=== PATIENT | male | born 1945 | race Caucasian/White ===

== ENCOUNTER 2021-01-11 18:55 | Inpatient (IN) ==
[2021-01-11] MEDS ORDERED: *HR* Etomidate 20 MG/10 ML AMPUL IVP ONE (19:08)
[2021-01-11] MEDS ORDERED: *HR* Midazolam HCl 5 MG/5 ML VIAL IVP ONE (19:08)
[2021-01-11] MEDS ORDERED: *HR* Rocuronium Bromide 50 MG/5 ML VIAL IVP ONE (19:08)
[2021-01-11] MEDS ORDERED: 0.9 % Sodium Chloride 500 ML IVC ONE (19:09)
[2021-01-11] MEDS ORDERED: 0.9 % Sodium Chloride 1,000 ML IVC STA ×2 (19:31→20:15)
[2021-01-11 19:48] LABS: Basophils % 0.1 %; Hematocrit 39.2 % (37.5-50.1); Hemoglobin 12.7 g/dL (12.9-16.9); Lymphocytes # 0.4 K/mcL (0.6-4.6); Lymphocytes % 2.5 %; Mean Corpuscular HGB Conc 32.4 g/dL (31.6-35.5); Mean Corpuscular Hemoglobin 27.9 pg (28.0-33.3); Mean Corpuscular Volume 86.2 fL (83.0-100.0); Mean Platelet Volume 10.2 fL (9.4-12.4); Monocytes # 0.5 K/mcL (0.0-1.3); Monocytes % 3.2 %; Neutrophils # 14.7 K/mcL (1.6-8.9); Nucleated Red Blood Cells 0.3 /100 WBC (0); Platelet Count 154 K/mcL (140-400); Red Blood Count 4.55 M/mcL (4.19-5.50); Red Cell Distribution Width 13.8 % (11.5-14.5); Segmented Neutrophils % 93.2 %; White Blood Count 15.8 K/mcL (4.3-11.1)
[2021-01-11 19:56] LABS: INR 1.5; Prothrombin Time 16.6 Seconds (9.4-12.1)
[2021-01-11 19:59] LABS: Activated Partial Thrombo Time 32.2 Seconds (26.0-36.0)
[2021-01-11 20:13] LABS: Alanine Aminotransferase 19 Units/L (7-52); Albumin 3.7 g/dL (3.5-5.7); Albumin/Globulin Ratio 1.2 (1.1-2.2); Alkaline Phosphatase 55 Units/L (34-104); Aspartate Amino Transferase 31 Units/L (13-39); BUN/Creatinine Ratio 21 (6-26); Bilirubin,Direct 0.3 mg/dL (0.0-0.2); Bilirubin,Total 1.3 mg/dL (0.3-1.0); Blood Urea Nitrogen 28 mg/dL (8-23); Carbon Dioxide 26 mEq/L (23-29); Chloride 97 mEq/L (98-107); Glucose 138 mg/dL (70-105); Magnesium 1.8 mg/dL (1.6-2.6); Osmolality,Calculated 284 (280-300); Potassium 3.7 mEq/L (3.5-5.1); Sodium 133 mEq/L (136-145); Total Protein 6.7 g/dL (6.4-8.9); Troponin I 0.48 ng/mL (< 0.04); eGFR For African Americans > 60 (> 60); eGFR For Non-African Americans 52 (> 60)
[2021-01-11] MEDS ORDERED: Azithromycin 500 MG in 0.9 % Sodium Chloride 250 ML IVPB ONE (20:14)
[2021-01-11] MEDS ORDERED: cefTRIAXone 1,000 MG in Water for inj. (sterile) 10 ML IVP ONE (20:14)
[2021-01-11 20:23] LABS: Thyroid Stimulating Hormone 1.046 mcIU/mL (0.340-5.600)
[2021-01-11 20:32] LABS: Bilirubin,Urine Negative (Negative); Blood,Urine Small (Negative); Clarity,Urine Clear (Clear); Color,Urine Yellow (Yellow); Glucose,Urine (UA) Normal (Normal); Ketones,Urine 20 mg/dL (Negative); Leukocyte Esterase,Urine Negative (Negative); Mucus,Urine Few per lpf (None-Few); Nitrite,Urine Negative (Negative); PH,Urine 7.5 pH Units (5.0-8.0); Protein,Urine >=300 mg/dL (Neg-Trace); Specific Gravity,Urine 1.029 (1.010-1.025); Squamous Epithelial Cell,Urine Few per hpf (None-Few); Urobilinogen,Urine Normal (Normal); WBC,Urine 0-3 per hpf (0-3)
[2021-01-11] MEDS ORDERED: *HR* Heparin 5,000 UNIT/ML VIAL IVP ONE (20:35)
[2021-01-11] MEDS ORDERED: *HR* Heparin 5,000 UNIT/ML VIAL IVP PRN (20:35)
[2021-01-11] MEDS ORDERED: methylPREDNISolone 125 MG/2 ML VIAL IVP ONE (20:38)
[2021-01-11] MEDS ORDERED: Ondansetron 4 MG/2 ML VIAL IVP ONE (20:38)
[2021-01-11] MEDS ORDERED: Isovue-370 500 ML BOTTLE IVP ONE (20:38)
[2021-01-11] MEDS ORDERED: Ipratropium/Albuterol Neb 3 ML IH ONE (20:38)
[2021-01-11] MEDS ORDERED: Famotidine 20 MG/2 ML VIAL IVP ONE (20:39)
[2021-01-11] MEDS ORDERED: DilTIAZem 50 MG/50 ML IV.SOLN IVC SCH (20:45)
[2021-01-11] MEDS ORDERED: 0.9 % Sodium Chloride 1,000 ML ONE (21:10)
[2021-01-11] MEDS ORDERED: Furosemide 80 MG in 0.9 % Sodium Chloride 50 ML IVPB ONE (21:22)
[2021-01-11 21:29] LABS: ABG Base Excess -8 mEq/L (-2 to 3); ABG HCO3 24 mEq/L (21-27); ABG Oxygen Saturation 88 % (95-98); ABG PCO2 82 mmHg (35-45); ABG PH 7.07 pH Units (7.32-7.45); ABG PO2 78 mmHg (85-104); ABG TCO2 27 mEq/L (20-26); Blood Gas Modality ASSIST CONTROL; Blood Gas VT 500 cc
[2021-01-11] MEDS ORDERED: Acetaminophen 650 MG RECTAL SUPP RC ONE (21:45)
[2021-01-11 22:44] LABS: Hematocrit 42.3 % (37.5-50.1); Hemoglobin 13.2 g/dL (12.9-16.9); Mean Corpuscular HGB Conc 31.2 g/dL (31.6-35.5); Mean Corpuscular Volume 89.6 fL (83.0-100.0); Mean Platelet Volume 10.3 fL (9.4-12.4); Platelet Count 203 K/mcL (140-400); Red Blood Count 4.72 M/mcL (4.19-5.50); Red Cell Distribution Width 14.2 % (11.5-14.5)
[2021-01-11 22:45] LABS: White Blood Count 24.3 K/mcL (4.3-11.1)
[2021-01-11 22:52] LABS: Heparin anti-factor XA UFH < 0.04 IU/mL (0.30-0.70)
[2021-01-11 22:53] LABS: INR 1.4; Prothrombin Time 15.9 Seconds (9.4-12.1)
[2021-01-11 23:11] LABS: ABG Base Excess -6 mEq/L (-2 to 3); ABG HCO3 26 mEq/L (21-27); ABG Oxygen Saturation 93 % (95-98); ABG PCO2 80 mmHg (35-45); ABG PH 7.11 pH Units (7.32-7.45); ABG PO2 92 mmHg (85-104); ABG TCO2 28 mEq/L (20-26); Blood Gas VT 500 cc
[2021-01-11] MEDS ORDERED: 0.9 % Sodium Chloride 250 ML ONE (23:16)
[2021-01-11] MEDS: Heparin 25,000UNIT/250ML 1/2NS 25,000 UNIT/250 ML IV.SOLN IVC SCH (23:28)
[2021-01-11] MEDS ORDERED: Piperacillin/Tazobactam 3.375 GM in 0.9 % Sodium Chloride Mini Bag 100 ML IVPB ONE (23:32)
[2021-01-11] MEDS ORDERED: 0.9 % Sodium Chloride 1,000 ML IVC SCH (23:45)
[2021-01-12] MEDS ORDERED: Vancomycin 1,500 MG/265 ML IV.SOLN IVPB STA
[2021-01-12] MEDS ORDERED: *HR* Heparin 5,000 UNIT/ML VIAL IVP ONE (00:16)
[2021-01-12] MEDS ORDERED: *HR* Heparin 5,000 UNIT/ML VIAL IVP PRN ×2 (00:16)
[2021-01-12] MEDS ORDERED: *HR* Etomidate 20 MG/10 ML AMPUL IVP ONE (00:22)
[2021-01-12] MEDS ORDERED: *HR* Rocuronium Bromide 50 MG/5 ML VIAL IVP ONE (00:22)
[2021-01-12] MEDS ORDERED: Heparin 25,000UNIT/250ML 1/2NS 25,000 UNIT/250 ML IV.SOLN IVC SCH (00:30)
[2021-01-12] MEDS ORDERED: 0.9 % Sodium Chloride 1,000 ML IVC ONE (00:41)
[2021-01-12] MEDS ORDERED: Naloxone 0.4 MG/ML INJ IVP PRN (00:50)
[2021-01-12] MEDS: Heparin 25,000UNIT/250ML 1/2NS 25,000 UNIT/250 ML IV.SOLN IVC SCH ×2 (00:53→23:43)
[2021-01-12] MEDS ORDERED: Artificial Tears SOLN 15 ML BOTTLE BOTH EYES PRN (02:04)
[2021-01-12 02:12] LABS: ABG Base Excess -4 mEq/L (-2 to 3); ABG HCO3 24 mEq/L (21-27); ABG Oxygen Saturation 99 % (95-98); ABG PCO2 55 mmHg (35-45); ABG PH 7.25 pH Units (7.32-7.45); ABG PO2 136 mmHg (85-104); ABG TCO2 26 mEq/L (20-26); Blood Gas VT 550 cc
[2021-01-12] MEDS ORDERED: Perflutren Lipid Microsphere 1.3 ML in 0.9 % Sodium Chloride 8.7 ML IVP PRN (02:33)
[2021-01-12] MEDS: FentaNYL (PF) 1,000 MCG/100 ML IV.SOLN IVC SCH ×3 (03:00→23:15)
[2021-01-12] MEDS: Midazolam HCl 50 MG/100 ML IV.SOLN IVC SCH ×2 (03:07→17:47)
[2021-01-12] MEDS: Norepinephrine 4 MG/254 ML IV.SOLN IVC SCH (03:42)
[2021-01-12 03:57] LABS: Basophils % 0.1 %; Hematocrit 34.1 % (37.5-50.1); Lymphocytes # 0.6 K/mcL (0.6-4.6); Mean Corpuscular HGB Conc 30.8 g/dL (31.6-35.5); Mean Corpuscular Hemoglobin 27.7 pg (28.0-33.3); Mean Platelet Volume 10.6 fL (9.4-12.4); Monocytes # 0.6 K/mcL (0.0-1.3); Monocytes % 2.9 %; Neutrophils # 17.4 K/mcL (1.6-8.9); Platelet Count 150 K/mcL (140-400); Red Blood Count 3.79 M/mcL (4.19-5.50); Red Cell Distribution Width 14.6 % (11.5-14.5); White Blood Count 18.9 K/mcL (4.3-11.1)
[2021-01-12 03:59] LABS: Hemoglobin 10.5 g/dL (12.9-16.9)
[2021-01-12 04:06] LABS: INR 1.5; Prothrombin Time 17.2 Seconds (9.4-12.1)
[2021-01-12 04:26] LABS: Troponin I 1.79 ng/mL (< 0.04)
[2021-01-12] MEDS: Artificial Tears SOLN 15 ML BOTTLE BOTH EYES SCH ×6 (04:34→23:39)
[2021-01-12 05:33] LABS: Albumin/Globulin Ratio 1.1 (1.1-2.2); Bilirubin,Total 0.8 mg/dL (0.3-1.0); Calcium 7.7 mg/dL (8.6-10.3); Chol/HDL Ratio 8.5 (0-4.9); Globulin 2.7 g/dL (2.4-3.5); Magnesium 2.1 mg/dL (1.6-2.6); Phosphorous 5.3 mg/dL (2.7-4.5); Potassium 4.8 mEq/L (3.5-5.1); Total Protein 5.7 g/dL (6.4-8.9)
[2021-01-12] MEDS: Piperacillin/Tazobactam 3.375 GM in 0.9 % Sodium Chloride Mini Bag 100 ML IVPB SCH ×3 (08:05→23:39)
[2021-01-12] MEDS: Pantoprazole 40 MG VIAL IVP SCH (08:09)
[2021-01-12] MEDS: Chlorhexidine Rinse 15 ML MOUTHWASH MM SCH ×2 (08:09→19:33)
[2021-01-12] MEDS: *HR* Heparin 5,000 UNIT/ML VIAL IVP PRN ×2 (13:06→19:36)
[2021-01-12] MEDS: MethylPREDNISolone 40 MG/ML VIAL IVP SCH (17:48)
[2021-01-13] MEDS: Artificial Tears SOLN 15 ML BOTTLE BOTH EYES SCH ×5 (03:41→20:00)
[2021-01-13 03:43] LABS: VBG Ionized Calcium 1.17 mmol/L (1.15-1.35)
[2021-01-13] MEDS: Midazolam HCl 50 MG/100 ML IV.SOLN IVC SCH ×2 (04:23→17:28)
[2021-01-13 04:43] LABS: ABG Base Excess -3 mEq/L (-2 to 3); ABG HCO3 23 mEq/L (21-27); ABG Oxygen Saturation 95 % (95-98); ABG PCO2 45 mmHg (35-45); ABG PH 7.32 pH Units (7.32-7.45); ABG PO2 83 mmHg (85-104); ABG TCO2 25 mEq/L (20-26); Blood Gas VT 550 cc
[2021-01-13 05:57] LABS: Hematocrit 34.6 % (37.5-50.1); Hemoglobin 11.2 g/dL (12.9-16.9); Mean Corpuscular HGB Conc 32.4 g/dL (31.6-35.5); Mean Corpuscular Hemoglobin 28.3 pg (28.0-33.3); Mean Corpuscular Volume 87.4 fL (83.0-100.0); Mean Platelet Volume 11.1 fL (9.4-12.4); Platelet Count 154 K/mcL (140-400); Red Blood Count 3.96 M/mcL (4.19-5.50); Red Cell Distribution Width 14.9 % (11.5-14.5)
[2021-01-13 06:00] LABS: White Blood Count 21.7 K/mcL (4.3-11.1)
[2021-01-13] MEDS: FentaNYL (PF) 1,000 MCG/100 ML IV.SOLN IVC SCH ×3 (06:12→20:30)
[2021-01-13] MEDS: MethylPREDNISolone 40 MG/ML VIAL IVP SCH ×2 (06:21→17:05)
[2021-01-13 06:23] LABS: Albumin 2.9 g/dL (3.5-5.7); Bilirubin,Direct 0.2 mg/dL (0.0-0.2); Bilirubin,Indirect 0.3 mg/dL (0.0-1.0); Bilirubin,Total 0.5 mg/dL (0.3-1.0); Calcium 8.1 mg/dL (8.6-10.3); Globulin 2.8 g/dL (2.4-3.5); Magnesium 2.5 mg/dL (1.6-2.6); Phosphorous 6.1 mg/dL (2.7-4.5); Potassium 4.3 mEq/L (3.5-5.1); Total Protein 5.7 g/dL (6.4-8.9); Troponin I 2.14 ng/mL (< 0.04)
[2021-01-13 06:38] LABS: Lymphocytes # 1.3 K/mcL (0.6-4.6); Monocytes # 0.4 K/mcL (0.0-1.3)
[2021-01-13 06:40] LABS: Burr Cells 1+ (Not Present); Poikilocytosis 1+ (Not Present)
[2021-01-13 06:41] LABS: Platelet Estimate Normal (Normal); Smudge Cells Present (Not Present)
[2021-01-13] MEDS: Cholecalciferol (D-3) 1,000 UNIT (25MCG) TABLET GTUBE SCH (07:41)
[2021-01-13] MEDS: Piperacillin/Tazobactam 3.375 GM in 0.9 % Sodium Chloride Mini Bag 100 ML IVPB SCH ×2 (07:41→19:52)
[2021-01-13] MEDS: Chlorhexidine Rinse 15 ML MOUTHWASH MM SCH ×2 (07:41→19:51)
[2021-01-13] MEDS: Pantoprazole 40 MG VIAL IVP SCH (07:41)
[2021-01-13] MEDS: 0.9 % Sodium Chloride 1,000 ML IVC SCH ×3 (07:42→23:58)
[2021-01-13 11:47] LABS: Sodium, Urine 14.2 mEq/L
[2021-01-13 11:52] LABS: Complement C3 101 mg/dL (87-200)
[2021-01-13 13:00] LABS: Protein/Creatinine Ratio,Urine 0.73 mg/mg (0.00-0.20)
[2021-01-13] MEDS: Norepinephrine 4 MG/254 ML IV.SOLN IVC SCH (13:20)
[2021-01-13] MEDS ORDERED: Vancomycin (wt based) 1,000 MG VIAL IV SCH (15:00)
[2021-01-13] MEDS ORDERED: Vancomycin 1 EACH in 0.9 % Sodium Chloride 250 ML IVPB PRN (15:00)
[2021-01-13] MEDS: Doxycycline 100 MG in 0.9 % Sodium Chloride Mini Bag 100 ML IVPB SCH (17:05)
[2021-01-13] MEDS: Heparin 25,000UNIT/250ML 1/2NS 25,000 UNIT/250 ML IV.SOLN IVC SCH (20:57)
[2021-01-14] MEDS: Artificial Tears SOLN 15 ML BOTTLE BOTH EYES SCH ×7 (00:38→23:42)
[2021-01-14 04:08] LABS: ABG Base Excess -7 mEq/L (-2 to 3); ABG HCO3 18 mEq/L (21-27); ABG Oxygen Saturation 92 % (95-98); ABG PCO2 37 mmHg (35-45); ABG PO2 70 mmHg (85-104); ABG TCO2 20 mEq/L (20-26); Blood Gas Modality ASSIST CONTROL; Blood Gas VT 500 cc
[2021-01-14] MEDS: FentaNYL (PF) 1,000 MCG/100 ML IV.SOLN IVC SCH ×3 (04:30→23:00)
[2021-01-14 04:39] LABS: Hematocrit 34.3 % (37.5-50.1); Hemoglobin 10.9 g/dL (12.9-16.9); Mean Corpuscular HGB Conc 31.8 g/dL (31.6-35.5); Mean Corpuscular Hemoglobin 27.9 pg (28.0-33.3); Mean Corpuscular Volume 87.9 fL (83.0-100.0); Mean Platelet Volume 11.4 fL (9.4-12.4); Platelet Count 147 K/mcL (140-400); Red Cell Distribution Width 15.5 % (11.5-14.5)
[2021-01-14 04:53] LABS: Calcium 7.7 mg/dL (8.6-10.3); Magnesium 2.7 mg/dL (1.6-2.6); Potassium 4.4 mEq/L (3.5-5.1)
[2021-01-14 05:00] LABS: Lymphocytes # 0.7 K/mcL (0.6-4.6); Neutrophils # 16.3 K/mcL (1.6-8.9); Platelet Estimate Normal (Normal)
[2021-01-14] MEDS: Doxycycline 100 MG in 0.9 % Sodium Chloride Mini Bag 100 ML IVPB SCH ×2 (05:47→18:09)
[2021-01-14] MEDS: MethylPREDNISolone 40 MG/ML VIAL IVP SCH ×2 (05:47→18:09)
[2021-01-14] MEDS: Cholecalciferol (D-3) 1,000 UNIT (25MCG) TABLET GTUBE SCH (07:56)
[2021-01-14] MEDS: Pantoprazole 40 MG VIAL IVP SCH (07:56)
[2021-01-14] MEDS: Piperacillin/Tazobactam 3.375 GM in 0.9 % Sodium Chloride Mini Bag 100 ML IVPB SCH ×2 (07:56→20:00)
[2021-01-14] MEDS: Chlorhexidine Rinse 15 ML MOUTHWASH MM SCH ×2 (07:56→20:05)
[2021-01-14] MEDS: Norepinephrine 4 MG/254 ML IV.SOLN IVC SCH (07:57)
[2021-01-14] MEDS ORDERED: D5% in Water 1,000 ML IVC PRN (10:47)
[2021-01-14] MEDS ORDERED: Dextrose Gel 15 GM/37.5 ML TUBE PO PRN ×2 (10:47)
[2021-01-14] MEDS ORDERED: *HR* Dextrose 50 % in Water (Vial) 50 ML VIAL IVP PRN (10:47)
[2021-01-14] MEDS: Insulin LISPRO 300 UNITS/3 ML VIAL SUBQ SCH ×3 (12:09→23:51)
[2021-01-14] MEDS ORDERED: 0.9 % Sodium Chloride 250 ML IVC PRN (13:02)
[2021-01-14] MEDS ORDERED: *HR* Heparin 10,000 UNIT/10 ML VIAL IV PRN ×2 (13:02)
[2021-01-14] MEDS ORDERED: 0.9 % Sodium Chloride 1,000 ML PRIME SCH (13:15)
[2021-01-14] MEDS ORDERED: Lidocaine/EPI 1:100k 1% 50 ML VIAL ONE (13:22)
[2021-01-14] MEDS ORDERED: Heparin 1,000 UNITS/500 mL 500 ML ONE (13:22)
[2021-01-14 14:06] LABS: Hepatitis B Surface Antibody 235.79 mIU/mL
[2021-01-14 14:17] LABS: Hepatitis B Surface Antigen Nonreactive (Nonreactive)
[2021-01-14] MEDS ORDERED: *HR* Heparin 5,000 UNIT/ML VIAL ONE (14:30)
[2021-01-14] MEDS: *HR* Heparin 5,000 UNIT/ML VIAL SQ SCH ×2 (15:19→21:27)
[2021-01-14 18:31] LABS: Appearance of Body Fluid Clear (Clear); Volume of Body Fluid 16 mL
[2021-01-15 02:54] LABS: VBG Ionized Calcium 1.05 mmol/L (1.15-1.35)
[2021-01-15 03:14] LABS: Basophils % 0.2 %; Hematocrit 35.1 % (37.5-50.1); Hemoglobin 11.8 g/dL (12.9-16.9); Immature Granulocytes % 1.3 % (0-4); Lymphocytes # 0.5 K/mcL (0.6-4.6); Lymphocytes % 2.9 %; Mean Corpuscular HGB Conc 33.6 g/dL (31.6-35.5); Mean Corpuscular Hemoglobin 28.9 pg (28.0-33.3); Mean Corpuscular Volume 85.8 fL (83.0-100.0); Mean Platelet Volume 11.4 fL (9.4-12.4); Monocytes # 0.4 K/mcL (0.0-1.3); Monocytes % 2.6 %; Neutrophils # 14.5 K/mcL (1.6-8.9); Platelet Count 168 K/mcL (140-400); Red Blood Count 4.09 M/mcL (4.19-5.50); Red Cell Distribution Width 15.3 % (11.5-14.5); White Blood Count 15.6 K/mcL (4.3-11.1)
[2021-01-15 03:17] LABS: Calcium 7.8 mg/dL (8.6-10.3); Potassium 4.2 mEq/L (3.5-5.1)
[2021-01-15 04:15] LABS: ABG Base Excess -3 mEq/L (-2 to 3); ABG HCO3 22 mEq/L (21-27); ABG Oxygen Saturation 91 % (95-98); ABG PCO2 39 mmHg (35-45); ABG PH 7.37 pH Units (7.32-7.45); ABG PO2 63 mmHg (85-104); ABG TCO2 24 mEq/L (20-26); Blood Gas Modality ASSIST CONTROL; Blood Gas VT 500 cc
[2021-01-15] MEDS: Artificial Tears SOLN 15 ML BOTTLE BOTH EYES SCH ×6 (04:23→23:46)
[2021-01-15] MEDS: Calcium Gluconate 1gm/50mL 1 GM/50 ML BAG IVPB SCH ×2 (04:35→05:24)
[2021-01-15] MEDS: Doxycycline 100 MG in 0.9 % Sodium Chloride Mini Bag 100 ML IVPB SCH ×2 (05:21→17:48)
[2021-01-15] MEDS: MethylPREDNISolone 40 MG/ML VIAL IVP SCH ×2 (05:23→17:48)
[2021-01-15] MEDS: *HR* Heparin 5,000 UNIT/ML VIAL SQ SCH ×3 (05:25→21:35)
[2021-01-15] MEDS: Insulin LISPRO 300 UNITS/3 ML VIAL SUBQ SCH ×4 (05:26→23:47)
[2021-01-15] MEDS: Norepinephrine 4 MG/254 ML IV.SOLN IVC SCH (05:48)
[2021-01-15] MEDS: Chlorhexidine Rinse 15 ML MOUTHWASH MM SCH ×2 (07:43→20:37)
[2021-01-15] MEDS ORDERED: *HR* Heparin 10,000 UNIT/10 ML VIAL IV PRN ×2 (07:44)
[2021-01-15] MEDS ORDERED: 0.9 % Sodium Chloride 250 ML IVC PRN (07:44)
[2021-01-15] MEDS: Pantoprazole 40 MG VIAL IVP SCH (07:45)
[2021-01-15] MEDS: Aspirin 81 MG TAB.CHEW PO SCH (07:46)
[2021-01-15] MEDS: Cholecalciferol (D-3) 1,000 UNIT (25MCG) TABLET GTUBE SCH (07:46)
[2021-01-15] MEDS: Piperacillin/Tazobactam 3.375 GM in 0.9 % Sodium Chloride Mini Bag 100 ML IVPB SCH ×2 (07:47→20:35)
[2021-01-15] MEDS: FentaNYL (PF) 1,000 MCG/100 ML IV.SOLN IVC SCH ×2 (07:56→16:10)
[2021-01-15] MEDS ORDERED: Vancomycin 1,250 MG/262.5 ML IV.SOLN IVPB ONE (15:00)
[2021-01-16] MEDS: FentaNYL (PF) 1,000 MCG/100 ML IV.SOLN IVC SCH ×3 (01:16→19:07)
[2021-01-16 03:19] LABS: VBG Ionized Calcium 1.06 mmol/L (1.15-1.35)
[2021-01-16 03:28] LABS: Basophils % 0.3 %; Hematocrit 34.6 % (37.5-50.1); Hemoglobin 11.1 g/dL (12.9-16.9); Immature Granulocytes % 4.4 % (0-4); Lymphocytes # 0.4 K/mcL (0.6-4.6); Lymphocytes % 2.9 %; Mean Corpuscular HGB Conc 32.1 g/dL (31.6-35.5); Mean Corpuscular Volume 87.2 fL (83.0-100.0); Mean Platelet Volume 11.6 fL (9.4-12.4); Monocytes # 0.6 K/mcL (0.0-1.3); Monocytes % 4.2 %; Neutrophils # 11.6 K/mcL (1.6-8.9); Platelet Count 173 K/mcL (140-400); Red Blood Count 3.97 M/mcL (4.19-5.50); Segmented Neutrophils % 88.2 %; White Blood Count 13.2 K/mcL (4.3-11.1)
[2021-01-16 03:36] LABS: Calcium 7.9 mg/dL (8.6-10.3); Magnesium 2.6 mg/dL (1.6-2.6); Potassium 4.2 mEq/L (3.5-5.1)
[2021-01-16 04:12] LABS: ABG Base Excess -1 mEq/L (-2 to 3); ABG HCO3 25 mEq/L (21-27); ABG Oxygen Saturation 95 % (95-98); ABG PCO2 42 mmHg (35-45); ABG PH 7.38 pH Units (7.32-7.45); ABG PO2 78 mmHg (85-104); ABG TCO2 26 mEq/L (20-26); Blood Gas Modality ASSIST CONTROL; Blood Gas VT 500 cc
[2021-01-16] MEDS: Artificial Tears SOLN 15 ML BOTTLE BOTH EYES SCH ×6 (05:13→23:23)
[2021-01-16] MEDS: Norepinephrine 4 MG/254 ML IV.SOLN IVC SCH (05:14)
[2021-01-16] MEDS: Doxycycline 100 MG in 0.9 % Sodium Chloride Mini Bag 100 ML IVPB SCH (05:19)
[2021-01-16] MEDS: *HR* Heparin 5,000 UNIT/ML VIAL SQ SCH ×3 (05:19→22:17)
[2021-01-16] MEDS: MethylPREDNISolone 40 MG/ML VIAL IVP SCH (05:20)
[2021-01-16] MEDS: Insulin LISPRO 300 UNITS/3 ML VIAL SUBQ SCH ×4 (05:35→23:24)
[2021-01-16] MEDS ORDERED: Calcium Gluconate 1gm/50mL 1 GM/50 ML BAG IVPB ONE (06:52)
[2021-01-16] MEDS ORDERED: 0.9 % Sodium Chloride 250 ML IVC PRN (07:25)
[2021-01-16] MEDS: 0.9 % Sodium Chloride 1,000 ML IVC SCH (07:25)
[2021-01-16] MEDS ORDERED: *HR* Heparin 10,000 UNIT/10 ML VIAL IV PRN ×2 (07:25)
[2021-01-16] MEDS ORDERED: 0.9 % Sodium Chloride 1,000 ML PRIME SCH (07:30)
[2021-01-16] MEDS: Aspirin 81 MG TAB.CHEW PO SCH (08:11)
[2021-01-16] MEDS: Chlorhexidine Rinse 15 ML MOUTHWASH MM SCH ×2 (08:11→19:50)
[2021-01-16] MEDS: Cholecalciferol (D-3) 1,000 UNIT (25MCG) TABLET GTUBE SCH (08:11)
[2021-01-16] MEDS: Piperacillin/Tazobactam 3.375 GM in 0.9 % Sodium Chloride Mini Bag 100 ML IVPB SCH ×2 (08:11→19:52)
[2021-01-16] MEDS: Pantoprazole 40 MG VIAL IVP SCH (08:12)
[2021-01-16 10:58] LABS: ANA IgG by ELISA NONE DETECTED (None Detected)
[2021-01-16] MEDS: Docusate Oral Soln 100 MG/10 ML UDC GTUBE SCH ×2 (11:29→19:53)
[2021-01-16 13:01] LABS: Lambda Qnt Free Light Chains 26.3 mg/L (5.71-26.30)
[2021-01-16 13:30] LABS: Kappa Qnt Free Light Chains 35.04 mg/L (3.30-19.40)
[2021-01-16] MEDS ORDERED: Piperacillin/Tazobactam 3.375 GM VIAL ONE (19:32)
[2021-01-17 01:33] LABS: APTT (LE Anticoag) >150 sec (32-48); Diluted Russell VVT Confirm NEGATIVE ratio (Negative); Diluted Russell Viper Venom 59 sec (33-44); LE APTT D Heparin Neutralized 69 sec (32-48); LE Coag APTT Mixing 54 sec (32-48); LE Coag Reptilase Time 17.5 sec (<=21.9); LE Dil. Russell Viper Mix 1:1 46 sec (33-44); LE Hexagonal Phospholipid Neut POSITIVE (Negative); PT (LE-Anticoag) 18.3 sec (12.0-15.5); Thrombin Time 46.3 sec (14.7-19.5)
[2021-01-17] MEDS: FentaNYL (PF) 1,000 MCG/100 ML IV.SOLN IVC SCH ×2 (02:02→10:25)
[2021-01-17] MEDS: Artificial Tears SOLN 15 ML BOTTLE BOTH EYES SCH ×4 (03:00→15:28)
[2021-01-17 03:54] LABS: Basophils # 0.1 K/mcL (0.0-0.2); Basophils % 0.5 %; Hematocrit 34.5 % (37.5-50.1); Hemoglobin 11.3 g/dL (12.9-16.9); Immature Granulocytes % 7.7 % (0-4); Lymphocytes # 0.8 K/mcL (0.6-4.6); Lymphocytes % 5.4 %; Mean Corpuscular HGB Conc 32.8 g/dL (31.6-35.5); Mean Corpuscular Hemoglobin 28.4 pg (28.0-33.3); Mean Corpuscular Volume 86.7 fL (83.0-100.0); Mean Platelet Volume 10.8 fL (9.4-12.4); Monocytes # 0.8 K/mcL (0.0-1.3); Monocytes % 5.3 %; Neutrophils # 12.1 K/mcL (1.6-8.9); Platelet Count 190 K/mcL (140-400); Red Blood Count 3.98 M/mcL (4.19-5.50); Red Cell Distribution Width 14.7 % (11.5-14.5); Segmented Neutrophils % 81.1 %; White Blood Count 14.9 K/mcL (4.3-11.1)
[2021-01-17 03:55] LABS: VBG Ionized Calcium 1.05 mmol/L (1.15-1.35)
[2021-01-17 04:19] LABS: Calcium 7.9 mg/dL (8.6-10.3); Magnesium 2.4 mg/dL (1.6-2.6); Phosphorous 6.5 mg/dL (2.7-4.5); Potassium 3.7 mEq/L (3.5-5.1)
[2021-01-17 04:42] LABS: ABG Base Excess 2 mEq/L (-2 to 3); ABG HCO3 27 mEq/L (21-27); ABG Oxygen Saturation 92 % (95-98); ABG PCO2 45 mmHg (35-45); ABG PH 7.39 pH Units (7.32-7.45); ABG PO2 66 mmHg (85-104); ABG TCO2 29 mEq/L (20-26); Blood Gas Modality ASSIST CONTROL; Blood Gas VT 550 cc
[2021-01-17] MEDS: *HR* Heparin 5,000 UNIT/ML VIAL SQ SCH ×3 (05:03→20:10)
[2021-01-17] MEDS: Insulin LISPRO 300 UNITS/3 ML VIAL SUBQ SCH ×3 (05:03→18:07)
[2021-01-17] MEDS ORDERED: Calcium Gluconate 1gm/50mL 1 GM/50 ML BAG IVPB ONE (07:17)
[2021-01-17] MEDS: Piperacillin/Tazobactam 3.375 GM in 0.9 % Sodium Chloride Mini Bag 100 ML IVPB SCH ×2 (07:35→20:09)
[2021-01-17] MEDS: Pantoprazole 40 MG VIAL IVP SCH (07:35)
[2021-01-17] MEDS: Chlorhexidine Rinse 15 ML MOUTHWASH MM SCH (07:35)
[2021-01-17] MEDS: Docusate Oral Soln 100 MG/10 ML UDC GTUBE SCH (07:36)
[2021-01-17] MEDS: MethylPREDNISolone 40 MG/ML VIAL IVP SCH (07:36)
[2021-01-17] MEDS: Aspirin 81 MG TAB.CHEW PO SCH (07:37)
[2021-01-17] MEDS: Cholecalciferol (D-3) 1,000 UNIT (25MCG) TABLET GTUBE SCH (07:37)
[2021-01-17] MEDS ORDERED: *HR* Labetalol 20 MG/4 ML SYRINGE IVP ONE (11:08)
[2021-01-17] MEDS ORDERED: niCARdipine 20 MG/200 ML MLS IVC ONE (11:43)
[2021-01-17] MEDS: *HR* Labetalol 20 MG/4 ML SYRINGE IVP PRN (11:49)
[2021-01-17] MEDS: niCARdipine 20 MG/200 ML MLS IVC SCH ×7 (11:50→22:23)
[2021-01-17] MEDS: Cholecalciferol (D-3) 1,000 UNIT (25MCG) TABLET PO SCH (20:31)
[2021-01-17] MEDS: Docusate Oral Soln 100 MG/10 ML UDC PO SCH (20:31)
[2021-01-18] MEDS: Insulin LISPRO 300 UNITS/3 ML VIAL SUBQ SCH ×5 (00:07→21:18)
[2021-01-18] MEDS: niCARdipine 20 MG/200 ML MLS IVC SCH ×8 (01:13→22:36)
[2021-01-18 03:33] LABS: VBG Ionized Calcium 1.02 mmol/L (1.15-1.35)
[2021-01-18 03:36] LABS: Hematocrit 41.2 % (37.5-50.1); Mean Corpuscular HGB Conc 32.8 g/dL (31.6-35.5); Mean Corpuscular Hemoglobin 27.7 pg (28.0-33.3); Mean Corpuscular Volume 84.6 fL (83.0-100.0); Mean Platelet Volume 10.5 fL (9.4-12.4); Platelet Count 251 K/mcL (140-400); Red Blood Count 4.87 M/mcL (4.19-5.50); Red Cell Distribution Width 14.2 % (11.5-14.5); White Blood Count 22.2 K/mcL (4.3-11.1)
[2021-01-18 03:39] LABS: Hemoglobin 13.5 g/dL (12.9-16.9)
[2021-01-18 03:53] LABS: Calcium 8.3 mg/dL (8.6-10.3); Magnesium 2.6 mg/dL (1.6-2.6); Phosphorous 5.5 mg/dL (2.7-4.5); Potassium 3.5 mEq/L (3.5-5.1)
[2021-01-18 04:14] LABS: Anisocytosis 1+ (Not Present); Lymphocytes # 0.9 K/mcL (0.6-4.6); Monocytes # 0.4 K/mcL (0.0-1.3); Neutrophils # 19.5 K/mcL (1.6-8.9); Platelet Estimate Normal (Normal); Toxic Granulation Present (Not Present)
[2021-01-18] MEDS: *HR* Heparin 5,000 UNIT/ML VIAL SQ SCH ×3 (05:17→21:18)
[2021-01-18 05:48] LABS: Alpha 2 Globulin (PEP) 0.94 g/dL (0.48-1.05); Beta Globulin (PEP) 0.55 g/dL (0.48-1.10)
[2021-01-18] MEDS ORDERED: *HR* Heparin 10,000 UNIT/10 ML VIAL IV PRN ×2 (08:00)
[2021-01-18] MEDS ORDERED: 0.9 % Sodium Chloride 250 ML IVC PRN (08:00)
[2021-01-18] MEDS ORDERED: 0.9 % Sodium Chloride 1,000 ML PRIME SCH (08:00)
[2021-01-18 08:40] LABS: GBM IgG Multiplex Bead Assay 0 AU/mL (0-19); Glomerular Basement Memb IgG NEGATIVE (Negative)
[2021-01-18 08:45] LABS: IFE Reflexed IFE Done
[2021-01-18] MEDS: Ondansetron 4 MG/2 ML VIAL IVP PRN ×2 (09:48→18:36)
[2021-01-18] MEDS: Docusate Oral Soln 100 MG/10 ML UDC PO SCH ×2 (10:26→21:17)
[2021-01-18] MEDS: *HR* Promethazine 25 MG/ML VIAL IM PRN (11:38)
[2021-01-18] MEDS: MethylPREDNISolone 40 MG/ML VIAL IVP SCH (13:16)
[2021-01-18] MEDS: Pantoprazole 40 MG VIAL IVP SCH (13:16)
[2021-01-18] MEDS: Cholecalciferol (D-3) 1,000 UNIT (25MCG) TABLET PO SCH (13:16)
[2021-01-18] MEDS: Piperacillin/Tazobactam 3.375 GM in 0.9 % Sodium Chloride Mini Bag 100 ML IVPB SCH ×2 (13:17→22:36)
[2021-01-18] MEDS: Aspirin 81 MG TAB.CHEW PO SCH (13:17)
[2021-01-18] MEDS: amLODIPine 5 MG TABLET PO SCH (16:06)
[2021-01-19] MEDS: niCARdipine 20 MG/200 ML MLS IVC SCH ×11 (02:18→17:48)
[2021-01-19 03:30] LABS: Basophils # 0.2 K/mcL (0.0-0.2); Basophils % 0.9 %; Hematocrit 42.6 % (37.5-50.1); Immature Granulocytes % 7.8 % (0-4); Lymphocytes # 0.6 K/mcL (0.6-4.6); Lymphocytes % 3.1 %; Mean Corpuscular HGB Conc 32.9 g/dL (31.6-35.5); Mean Corpuscular Hemoglobin 27.9 pg (28.0-33.3); Mean Platelet Volume 10.7 fL (9.4-12.4); Monocytes # 0.6 K/mcL (0.0-1.3); Monocytes % 3.1 %; Platelet Count 257 K/mcL (140-400); Red Blood Count 5.01 M/mcL (4.19-5.50); Red Cell Distribution Width 14.1 % (11.5-14.5); Segmented Neutrophils % 85.1 %
[2021-01-19 03:31] LABS: VBG Ionized Calcium 1.08 mmol/L (1.15-1.35)
[2021-01-19 03:49] LABS: Calcium 8.5 mg/dL (8.6-10.3); Magnesium 2.5 mg/dL (1.6-2.6); Potassium 3.5 mEq/L (3.5-5.1)
[2021-01-19 03:51] LABS: Platelet Estimate Normal (Normal)
[2021-01-19] MEDS: Ondansetron 4 MG/2 ML VIAL IVP PRN ×3 (04:03→16:22)
[2021-01-19] MEDS: Insulin LISPRO 300 UNITS/3 ML VIAL SUBQ SCH ×3 (05:43→17:25)
[2021-01-19] MEDS: *HR* Heparin 5,000 UNIT/ML VIAL SQ SCH ×3 (05:43→21:52)
[2021-01-19] MEDS: *HR* Promethazine 25 MG/ML VIAL IM PRN (07:26)
[2021-01-19] MEDS: *HR* Labetalol 20 MG/4 ML SYRINGE IVP PRN (07:42)
[2021-01-19] MEDS: Cholecalciferol (D-3) 1,000 UNIT (25MCG) TABLET PO SCH (08:09)
[2021-01-19] MEDS: Aspirin 81 MG TAB.CHEW PO SCH (08:09)
[2021-01-19] MEDS: Docusate Oral Soln 100 MG/10 ML UDC PO SCH ×2 (08:09→21:52)
[2021-01-19] MEDS: MethylPREDNISolone 40 MG/ML VIAL IVP SCH (08:14)
[2021-01-19] MEDS: Calcium Gluconate 1gm/50mL 1 GM/50 ML BAG IVPB SCH ×2 (08:15→09:46)
[2021-01-19] MEDS: *HR* Metoprolol 5 MG/5 ML VIAL IVP SCH ×2 (11:18→17:16)
[2021-01-19] MEDS: Piperacillin/Tazobactam 3.375 GM in 0.9 % Sodium Chloride Mini Bag 100 ML IVPB SCH ×2 (11:19→21:53)
[2021-01-19] MEDS: niCARdipine 40 MG/200 ML MLS IVC SCH (20:15)
[2021-01-19] MEDS ORDERED: Ipratropium/Albuterol Neb 3 ML IH PRN (20:22)
[2021-01-19] MEDS ORDERED: Ipratropium/Albuterol Neb 3 ML ONE (20:26)
[2021-01-20] MEDS: niCARdipine 40 MG/200 ML MLS IVC SCH ×3 (00:28→10:43)
[2021-01-20] MEDS: Metoclopramide 10 MG/2 ML VIAL IVP SCH ×4 (00:28→18:33)
[2021-01-20] MEDS: Insulin LISPRO 300 UNITS/3 ML VIAL SUBQ SCH ×4 (00:28→18:36)
[2021-01-20] MEDS: *HR* Metoprolol 5 MG/5 ML VIAL IVP SCH ×4 (00:28→18:33)
[2021-01-20 03:54] LABS: Basophils # 0.1 K/mcL (0.0-0.2); Basophils % 0.3 %; Hematocrit 40.9 % (37.5-50.1); Immature Granulocytes % 5.2 % (0-4); Lymphocytes # 0.6 K/mcL (0.6-4.6); Lymphocytes % 2.9 %; Mean Corpuscular HGB Conc 31.8 g/dL (31.6-35.5); Mean Corpuscular Hemoglobin 27.4 pg (28.0-33.3); Mean Corpuscular Volume 86.3 fL (83.0-100.0); Mean Platelet Volume 10.6 fL (9.4-12.4); Monocytes % 4.6 %; Neutrophils # 18.9 K/mcL (1.6-8.9); Platelet Count 249 K/mcL (140-400); Red Blood Count 4.74 M/mcL (4.19-5.50); Red Cell Distribution Width 13.9 % (11.5-14.5); White Blood Count 21.7 K/mcL (4.3-11.1)
[2021-01-20 04:09] LABS: Calcium 8.4 mg/dL (8.6-10.3); Magnesium 2.4 mg/dL (1.6-2.6); Potassium 3.8 mEq/L (3.5-5.1)
[2021-01-20 04:22] LABS: Platelet Estimate Normal (Normal)
[2021-01-20] MEDS: *HR* Heparin 5,000 UNIT/ML VIAL SQ SCH ×3 (05:21→20:49)
[2021-01-20] MEDS: Docusate Oral Soln 100 MG/10 ML UDC PO SCH (08:32)
[2021-01-20] MEDS: amLODIPine 5 MG TABLET PO SCH (08:32)
[2021-01-20] MEDS: MethylPREDNISolone 40 MG/ML VIAL IVP SCH (08:32)
[2021-01-20] MEDS: Aspirin 81 MG TAB.CHEW PO SCH (08:32)
[2021-01-20] MEDS: Cholecalciferol (D-3) 1,000 UNIT (25MCG) TABLET PO SCH (08:33)
[2021-01-20] MEDS: Piperacillin/Tazobactam 3.375 GM in 0.9 % Sodium Chloride Mini Bag 100 ML IVPB SCH ×2 (13:07→22:06)
[2021-01-20] MEDS ORDERED: amLODIPine 5 MG TABLET PO SCH (22:00)
[2021-01-20] MEDS ORDERED: amLODIPine 5 MG TABLET PO ONE (22:00)
[2021-01-20] MEDS ORDERED: Dexmedetomidine HCl 400 MCG/100 ML MLS IVC ONE (23:43)
[2021-01-21] MEDS: Metoclopramide 10 MG/2 ML VIAL IVP SCH ×4 (00:21→23:51)
[2021-01-21] MEDS: Insulin LISPRO 300 UNITS/3 ML VIAL SUBQ SCH ×5 (00:21→23:52)
[2021-01-21] MEDS: Dexmedetomidine HCl 400 MCG/100 ML MLS IVC SCH ×2 (00:21→11:11)
[2021-01-21] MEDS: *HR* Metoprolol 5 MG/5 ML VIAL IVP SCH ×5 (00:21→23:51)
[2021-01-21] MEDS: niCARdipine 40 MG/200 ML MLS IVC SCH ×4 (01:49→23:52)
[2021-01-21 05:44] LABS: VBG Ionized Calcium 1.13 mmol/L (1.15-1.35)
[2021-01-21 05:47] LABS: Basophils % 0.2 %; Hematocrit 37.8 % (37.5-50.1); Hemoglobin 12.5 g/dL (12.9-16.9); Immature Granulocytes % 2.4 % (0-4); Lymphocytes # 0.6 K/mcL (0.6-4.6); Lymphocytes % 3.2 %; Mean Corpuscular HGB Conc 33.1 g/dL (31.6-35.5); Mean Corpuscular Hemoglobin 28.9 pg (28.0-33.3); Mean Corpuscular Volume 87.3 fL (83.0-100.0); Mean Platelet Volume 10.4 fL (9.4-12.4); Monocytes # 1.1 K/mcL (0.0-1.3); Monocytes % 5.4 %; Neutrophils # 17.2 K/mcL (1.6-8.9); Platelet Count 216 K/mcL (140-400); Red Blood Count 4.33 M/mcL (4.19-5.50); Segmented Neutrophils % 88.8 %; White Blood Count 19.3 K/mcL (4.3-11.1)
[2021-01-21 06:00] LABS: Calcium 8.5 mg/dL (8.6-10.3); Magnesium 2.1 mg/dL (1.6-2.6); Phosphorous 4.9 mg/dL (2.7-4.5); Potassium 3.9 mEq/L (3.5-5.1)
[2021-01-21] MEDS: *HR* Heparin 5,000 UNIT/ML VIAL SQ SCH ×3 (06:04→20:27)
[2021-01-21] MEDS: Cholecalciferol (D-3) 1,000 UNIT (25MCG) TABLET PO SCH (07:36)
[2021-01-21] MEDS: MethylPREDNISolone 40 MG/ML VIAL IVP SCH (07:37)
[2021-01-21] MEDS: Aspirin 81 MG TAB.CHEW PO SCH (07:37)
[2021-01-21] MEDS: amLODIPine 5 MG TABLET PO SCH (07:37)
[2021-01-21] MEDS ORDERED: hydrALAZINE 25 MG TABLET PO SCH (08:00)
[2021-01-21] MEDS: Piperacillin/Tazobactam 3.375 GM in 0.9 % Sodium Chloride Mini Bag 100 ML IVPB SCH ×2 (10:10→23:51)
[2021-01-21] MEDS: hydrALAZINE 25 MG TABLET PO SCH ×3 (12:38→20:31)
[2021-01-21 16:39] LABS: Hematocrit 45.2 % (37.5-50.1)
[2021-01-21 16:44] LABS: Hemoglobin 14.7 g/dL (12.9-16.9)
[2021-01-21] MEDS: *HR* Labetalol 20 MG/4 ML SYRINGE IVP PRN (18:23)
[2021-01-21 20:18] LABS: Hematocrit 44.5 % (37.5-50.1); Hemoglobin 14.6 g/dL (12.9-16.9)
[2021-01-22] MEDS: Dexmedetomidine HCl 400 MCG/100 ML MLS IVC SCH (04:11)
[2021-01-22] MEDS: *HR* Heparin 5,000 UNIT/ML VIAL SQ SCH ×3 (05:28→22:24)
[2021-01-22] MEDS: Insulin LISPRO 300 UNITS/3 ML VIAL SUBQ SCH ×3 (05:28→17:45)
[2021-01-22] MEDS: *HR* Metoprolol 5 MG/5 ML VIAL IVP SCH (05:28)
[2021-01-22 06:08] LABS: Hematocrit 44.6 % (37.5-50.1); Mean Platelet Volume 10.6 fL (9.4-12.4)
[2021-01-22 06:10] LABS: Mean Corpuscular HGB Conc 31.4 g/dL (31.6-35.5); Mean Corpuscular Hemoglobin 27.6 pg (28.0-33.3); Mean Corpuscular Volume 87.8 fL (83.0-100.0); Platelet Count 268 K/mcL (140-400); Red Blood Count 5.08 M/mcL (4.19-5.50)
[2021-01-22 06:33] LABS: Calcium 8.6 mg/dL (8.6-10.3); Potassium 4.1 mEq/L (3.5-5.1)
[2021-01-22 06:34] LABS: Anisocytosis 1+ (Not Present); Lymphocytes # 1.7 K/mcL (0.6-4.6); Monocytes # 1.2 K/mcL (0.0-1.3); Neutrophils # 26.1 K/mcL (1.6-8.9); Platelet Estimate Normal (Normal); Toxic Granulation Present (Not Present)
[2021-01-22] MEDS: Aspirin 81 MG TAB.CHEW PO SCH (09:34)
[2021-01-22] MEDS: hydrALAZINE 25 MG TABLET PO SCH ×3 (09:34→20:01)
[2021-01-22] MEDS: amLODIPine 5 MG TABLET PO SCH (09:35)
[2021-01-22] MEDS: Cholecalciferol (D-3) 1,000 UNIT (25MCG) TABLET PO SCH (09:35)
[2021-01-22] MEDS: MethylPREDNISolone 40 MG/ML VIAL IVP SCH (09:36)
[2021-01-22] MEDS: Levalbuterol Neb 0.63 MG/3 ML IH SCH ×3 (10:20→21:18)
[2021-01-22] MEDS: Ipratropium Neb 0.5 MG NEBULIZER IH SCH ×3 (10:20→21:18)
[2021-01-22] MEDS ORDERED: *HR* Metoprolol 5 MG/5 ML VIAL IVP PRN (11:40)
[2021-01-22] MEDS: Piperacillin/Tazobactam 3.375 GM in 0.9 % Sodium Chloride Mini Bag 100 ML IVPB SCH ×2 (11:43→22:25)
[2021-01-22] MEDS: Metoclopramide 10 MG/2 ML VIAL IVP SCH (11:52)
[2021-01-22] MEDS: niCARdipine 40 MG/200 ML MLS IVC SCH (11:52)
[2021-01-23] MEDS: MetroNIDAZOLE 500 MG/100 ML 500 MG/100 ML BAG IVPB SCH ×2 (00:24→08:08)
[2021-01-23] MEDS: Insulin LISPRO 300 UNITS/3 ML VIAL SUBQ SCH ×4 (00:25→17:57)
[2021-01-23] MEDS: Ipratropium Neb 0.5 MG NEBULIZER IH SCH ×4 (04:03→22:21)
[2021-01-23] MEDS: Levalbuterol Neb 0.63 MG/3 ML IH SCH ×4 (04:03→22:21)
[2021-01-23 05:42] LABS: Basophils % 0.2 %
[2021-01-23 05:43] LABS: Basophils # 0.1 K/mcL (0.0-0.2); Hematocrit 38.1 % (37.5-50.1); Hemoglobin 12.7 g/dL (12.9-16.9); Immature Granulocytes % 1.7 % (0-4); Lymphocytes # 0.7 K/mcL (0.6-4.6); Lymphocytes % 2.9 %; Mean Corpuscular HGB Conc 33.3 g/dL (31.6-35.5); Mean Corpuscular Hemoglobin 28.5 pg (28.0-33.3); Mean Corpuscular Volume 85.4 fL (83.0-100.0); Mean Platelet Volume 10.8 fL (9.4-12.4); Monocytes # 1.3 K/mcL (0.0-1.3); Monocytes % 5.1 %; Neutrophils # 22.1 K/mcL (1.6-8.9); Platelet Count 187 K/mcL (140-400); Red Blood Count 4.46 M/mcL (4.19-5.50); Red Cell Distribution Width 13.9 % (11.5-14.5); Segmented Neutrophils % 90.1 %; White Blood Count 24.5 K/mcL (4.3-11.1)
[2021-01-23] MEDS: *HR* Heparin 5,000 UNIT/ML VIAL SQ SCH ×3 (05:44→21:27)
[2021-01-23 05:50] LABS: VBG Ionized Calcium 1.14 mmol/L (1.15-1.35)
[2021-01-23 06:02] LABS: Calcium 8.4 mg/dL (8.6-10.3); Phosphorous 3.7 mg/dL (2.7-4.5); Potassium 4.1 mEq/L (3.5-5.1)
[2021-01-23 06:11] LABS: Platelet Estimate Normal (Normal)
[2021-01-23] MEDS: Aspirin 81 MG TAB.CHEW PO SCH (08:09)
[2021-01-23] MEDS: hydrALAZINE 25 MG TABLET PO SCH ×3 (08:09→21:26)
[2021-01-23] MEDS: Cholecalciferol (D-3) 1,000 UNIT (25MCG) TABLET PO SCH (08:09)
[2021-01-23] MEDS ORDERED: predniSONE 10 MG TABLET PO SCH (09:00)
[2021-01-23] MEDS ORDERED: hydrALAZINE 25 MG TABLET PO ONE ×2 (09:42→11:58)
[2021-01-23] MEDS ORDERED: *HR* Promethazine 25 MG/ML VIAL IM PRN (11:58)
[2021-01-23] MEDS ORDERED: D5% in Water 1,000 ML IVC PRN (11:58)
[2021-01-23] MEDS ORDERED: *HR* Metoprolol 5 MG/5 ML VIAL IVP PRN (11:58)
[2021-01-23] MEDS ORDERED: Ondansetron 4 MG/2 ML VIAL IVP PRN (11:58)
[2021-01-23] MEDS ORDERED: *HR* Dextrose 50 % in Water (Vial) 50 ML VIAL IVP PRN (11:58)
[2021-01-23] MEDS ORDERED: Naloxone 0.4 MG/ML INJ IVP PRN (11:58)
[2021-01-23] MEDS ORDERED: Dextrose Gel 15 GM/37.5 ML TUBE PO PRN ×2 (11:58)
[2021-01-23] MEDS ORDERED: DilTIAZem CD (24hr) 240 MG CAP.ER.24H PO SCH (12:00)
[2021-01-23] MEDS: DilTIAZem CD (24hr) 240 MG CAP.ER.24H PO SCH (13:05)
[2021-01-23] MEDS: Piperacillin/Tazobactam 3.375 GM in 0.9 % Sodium Chloride Mini Bag 100 ML IVPB SCH (13:06)
[2021-01-23] MEDS ORDERED: hydrALAZINE 25 MG TABLET PO SCH (15:00)
[2021-01-24] MEDS: Insulin LISPRO 300 UNITS/3 ML VIAL SUBQ SCH ×3 (00:52→12:16)
[2021-01-24 00:56] LABS: Hematocrit 36.8 % (37.5-50.1); Hemoglobin 11.8 g/dL (12.9-16.9); Mean Corpuscular HGB Conc 32.1 g/dL (31.6-35.5); Mean Corpuscular Hemoglobin 27.6 pg (28.0-33.3); Mean Corpuscular Volume 86.2 fL (83.0-100.0); Mean Platelet Volume 11.1 fL (9.4-12.4); Platelet Count 190 K/mcL (140-400); Red Blood Count 4.27 M/mcL (4.19-5.50); Red Cell Distribution Width 13.9 % (11.5-14.5); White Blood Count 24.2 K/mcL (4.3-11.1)
[2021-01-24 01:15] LABS: Calcium 8.4 mg/dL (8.6-10.3); Potassium 4.3 mEq/L (3.5-5.1)
[2021-01-24] MEDS: Levalbuterol Neb 0.63 MG/3 ML IH SCH ×5 (03:51→22:28)
[2021-01-24] MEDS: Ipratropium Neb 0.5 MG NEBULIZER IH SCH ×5 (03:51→22:28)
[2021-01-24] MEDS: Piperacillin/Tazobactam 3.375 GM in 0.9 % Sodium Chloride Mini Bag 100 ML IVPB SCH ×2 (04:38→12:26)
[2021-01-24] MEDS: *HR* Heparin 5,000 UNIT/ML VIAL SQ SCH (06:07)
[2021-01-24] MEDS: Cholecalciferol (D-3) 1,000 UNIT (25MCG) TABLET PO SCH (08:05)
[2021-01-24] MEDS: Aspirin 81 MG TAB.CHEW PO SCH (08:05)
[2021-01-24] MEDS: Cyanocobalamin (B-12) 1,000 MCG TABLET PO SCH (08:05)
[2021-01-24] MEDS ORDERED: Oxymetazoline Nasal SPRAY BOTTLE NS PRN (08:09)
[2021-01-24] MEDS: DilTIAZem CD (24hr) 240 MG CAP.ER.24H PO SCH (08:28)
[2021-01-24] MEDS: hydrALAZINE 25 MG TABLET PO SCH ×3 (08:29→20:51)
[2021-01-24] MEDS: predniSONE 10 MG TABLET PO SCH (08:34)
[2021-01-24 08:46] LABS: Hematocrit 37.8 % (37.5-50.1); Hemoglobin 11.8 g/dL (12.9-16.9)
[2021-01-24 08:54] LABS: INR 1.3; Prothrombin Time 15.3 Seconds (9.4-12.1)
[2021-01-24] MEDS ORDERED: Melatonin 3 MG TABLET PO PRN (18:33)
[2021-01-24] MEDS: Saline Nasal Spray 44 ML BOTTLE NS SCH (22:04)
[2021-01-25] MEDS: Piperacillin/Tazobactam 3.375 GM in 0.9 % Sodium Chloride Mini Bag 100 ML IVPB SCH ×2 (01:30→14:39)
[2021-01-25] MEDS: Ipratropium Neb 0.5 MG NEBULIZER IH SCH ×4 (03:57→22:09)
[2021-01-25] MEDS: Levalbuterol Neb 0.63 MG/3 ML IH SCH ×4 (03:57→22:09)
[2021-01-25 07:13] LABS: Basophils % 0.1 %; Hematocrit 37.5 % (37.5-50.1); Immature Granulocytes % 0.9 % (0-4); Lymphocytes # 0.8 K/mcL (0.6-4.6); Lymphocytes % 3.7 %; Mean Corpuscular Hemoglobin 27.6 pg (28.0-33.3); Mean Corpuscular Volume 86.4 fL (83.0-100.0); Monocytes # 0.9 K/mcL (0.0-1.3); Monocytes % 4.2 %; Neutrophils # 19.9 K/mcL (1.6-8.9); Platelet Count 143 K/mcL (140-400); Red Blood Count 4.34 M/mcL (4.19-5.50); Red Cell Distribution Width 14.1 % (11.5-14.5); Segmented Neutrophils % 91.1 %; White Blood Count 21.9 K/mcL (4.3-11.1)
[2021-01-25 07:40] LABS: Calcium 8.8 mg/dL (8.6-10.3); Potassium 4.1 mEq/L (3.5-5.1)
[2021-01-25] MEDS: predniSONE 10 MG TABLET PO SCH (08:11)
[2021-01-25] MEDS: Cyanocobalamin (B-12) 1,000 MCG TABLET PO SCH (08:11)
[2021-01-25] MEDS: Aspirin 81 MG TAB.CHEW PO SCH (08:12)
[2021-01-25] MEDS: hydrALAZINE 25 MG TABLET PO SCH ×3 (08:12→20:54)
[2021-01-25] MEDS: DilTIAZem CD (24hr) 240 MG CAP.ER.24H PO SCH (08:12)
[2021-01-25] MEDS: Cholecalciferol (D-3) 1,000 UNIT (25MCG) TABLET PO SCH (08:13)
[2021-01-25] MEDS: Saline Nasal Spray 44 ML BOTTLE NS SCH ×2 (08:14→20:55)
[2021-01-25] MEDS ORDERED: Ipratropium Neb 0.5 MG NEBULIZER IH PRN (22:14)
[2021-01-26 04:04] LABS: Basophils % 0.1 %; Hematocrit 34.7 % (37.5-50.1); Hemoglobin 11.5 g/dL (12.9-16.9); Immature Granulocytes % 0.6 % (0-4); Lymphocytes # 0.8 K/mcL (0.6-4.6); Lymphocytes % 3.9 %; Mean Corpuscular HGB Conc 33.1 g/dL (31.6-35.5); Mean Corpuscular Hemoglobin 28.5 pg (28.0-33.3); Mean Corpuscular Volume 86.1 fL (83.0-100.0); Mean Platelet Volume 12.1 fL (9.4-12.4); Monocytes # 0.8 K/mcL (0.0-1.3); Monocytes % 3.9 %; Platelet Count 148 K/mcL (140-400); Red Blood Count 4.03 M/mcL (4.19-5.50); Red Cell Distribution Width 14.3 % (11.5-14.5); Segmented Neutrophils % 91.5 %; White Blood Count 20.8 K/mcL (4.3-11.1)
[2021-01-26 04:16] LABS: Calcium 8.8 mg/dL (8.6-10.3); Potassium 4.5 mEq/L (3.5-5.1)
[2021-01-26 06:58] VITALS: BP 165/98
[2021-01-26] MEDS: predniSONE 10 MG TABLET PO SCH (08:07)
[2021-01-26] MEDS: Aspirin 81 MG TAB.CHEW PO SCH (08:07)
[2021-01-26] MEDS: Cyanocobalamin (B-12) 1,000 MCG TABLET PO SCH (08:07)
[2021-01-26] MEDS: DilTIAZem CD (24hr) 240 MG CAP.ER.24H PO SCH (08:07)
[2021-01-26] MEDS: hydrALAZINE 25 MG TABLET PO SCH (08:08)
[2021-01-26] MEDS: Cholecalciferol (D-3) 1,000 UNIT (25MCG) TABLET PO SCH (08:08)
[2021-01-26] MEDS: Saline Nasal Spray 44 ML BOTTLE NS SCH (08:08)
== END 2021-01-26 10:54 | disposition home health service (06) | DRG 870 ==
LOC: EMEROOARM 18:55 → SUATTDRO 01-12 00:33 → ICNU 01-12 00:33 → 2NENU 01-23 18:22
PROVIDERS: ADMIT Internal Medicine; ATTEND Family Medicine